=== PATIENT | female | born 1975 | race African-American/Black ===

== ENCOUNTER 2022-12-13 02:58 | Emergency (ER) | payer BC ==
[~2022-12-13] VITALS: Ht 160 cm; Wt 71.3 kg
[2022-12-13 03:24] VITALS: O2SAT 100
[2022-12-13 04:20] LABS: BASOPHILS % 1.1 % (0.0-2.0); HEMATOCRIT. 39.6 % (36.0-48.0); HEMOGLOBIN. 13.2 g/dL (12.0-16.0); LYMPHOCYTES % 17.3 % (20.0-50.0); MEAN CORPUSCULAR HEMOGLOBIN 27.3 pg (28.0-32.0); MEAN CORPUSCULAR HGB CONC 33.3 g/dL (31.0-37.0); MEAN CORPUSCULAR VOLUME 82.1 fL (81.0-99.0); MEAN PLATELET VOLUME 8.2 fl (7.4-10.4); MONOCYTES % 4.9 % (2.0-8.0); NEUTROPHILS % 76.7 % (40.0-76.0); PLATELET 304 x1000/uL (130-400); RED BLOOD CELL COUNT 4.82 mill/uL (4.2-5.4); RED CELL DISTRIBUTION WIDTH 14.1 % (11.6-14.6); WHITE BLOOD COUNT 10.4 x1000/uL (4.5-11.0)
[2022-12-13] MEDS: ONDANSETRON HCL 4MG/2ML INJ IV STA (04:20)
[2022-12-13] MEDS: KETOROLAC 30MG/ML VIAL IV STA (04:20)
[2022-12-13] MEDS: SODIUM CHLORIDE 0.9% 1,000 ML IV ONE (04:20)
[2022-12-13 04:27] LABS: CHLORIDE 105 mEq/L (98-107); INDEX HEMOLYSI 1 (1-3); INDEX ICTERIC 1 (1-4); INDEX LIPEMIC 1 (1-3); POTASSIUM 3.4 mEq/L (3.5-5.1); SODIUM 138 mEq/L (136-145)
[2022-12-13 04:34] LABS: ALANINE AMINOTRANSFERASE 28 IU/L (13-61); ALBUMIN 4.3 g/dL (3.4-5.0); ASPARTATE AMINOTRANSFERASE 22 IU/L (15-37); BILIRUBIN TOTAL 0.8 mg/dL (0.1-1.0); CALCIUM 10.7 mg/dL (8.5-10.1); CARBON DIOXIDE 20 mEq/L (21-32); CREATININE 0.9 mg/dL (0.6-1.3); GLUCOSE 120 mg/dL (70-105); PROTEIN TOTAL 8.6 g/dL (6.0-8.3); UREA NITROGEN BLOOD 16 mg/dL (7-21)
[2022-12-13 05:30] LABS: CLARITY URINE CLOUDY (CLEAR); COLOR URINE YELLOW (YELLOW); GLUCOSE URINE NEGATIVE (NEGATIVE); KETONES URINE TRACE (NEGATIVE); LEUKOCYTE ESTERASE URINE NEGATIVE (NEGATIVE); NITRITE URINE NEGATIVE (NEGATIVE); OCCULT BLOOD URINE 3+ (NEGATIVE); PH URINE 8.5 (4.5-8.0); PROTEIN URINE TRACE (NEGATIVE); SPECIFIC GRAVITY URINE 1.012 (1.005-1.030); UROBILINOGEN URINE 0.2 E.U./dL (0.2-1.0)
[2022-12-13 05:33] LABS: BACTERIA URINE NONE SEEN; WBC URINE 0-2 /hpf (0-2); YEAST URINE NONE SEEN
[2022-12-13] MEDS: MORPHINE SULFATE 4 MG/ML CPJ (NOT FOR IM USE) IV ONE (06:05)
[2022-12-13] MEDS ORDERED: IBUP-2029 MT (06:23)
[2022-12-13] MEDS ORDERED: HYDR-4001 MT (06:23)
[2022-12-13] MEDS ORDERED: TAMS-11 MT (06:23)
[2022-12-13 06:34] LABS: SQUAMOUS EPITHELIAL CELL URINE FEW /lpf (RARE/1+)
[2022-12-13 06:42] LABS: RBC URINE 15-25 /hpf (0-2)
[2022-12-13 07:58] VITALS: BP 124/86; PULSE 61; RESP 16; TEMP 98
== END 2022-12-13 08:01 | disposition home or self-care (01) ==
LOC: ER 02:58
DX: N20.0 Calculus of kidney (principal); J45.909 Unspecified asthma, uncomplicated; Z88.2 Allergy status to sulfonamides
CPT/HCPCS: 80053; 81003; 83605; 83690; 85025; 36415; 74176; 96361; 96374; 96375; 99285; J1885; J2405; J2270; J7030; Z7610 ×2